=== PATIENT | female | born 1995 | race Caucasian/White ===

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

== ENCOUNTER → 2019-07-25 | Outpatient (CLI) | payer BC | END | disposition home or self-care (01) | LOC: LABWHC1 16:11 | PROVIDERS: ATTEND Physician Assistant Medical | DX: L70.8 Other acne (principal) | CPT/HCPCS: 36415; 84132 ==